=== PATIENT | male | born 1965 | race Caucasian/White ===

== ENCOUNTER 2019-06-27 13:24 | Emergency (ER) | payer BC, OTHER ==
[~2019-06-27] VITALS: Ht 177.8 cm; Wt 81.6 kg
--- NOTE | 2019-06-27 14:20 | ED Lower Extremity ---
General Chief Complaint: Lower Extremity Stated Complaint: R KNEE PAIN Nursing Triage Note: Pt amb to traige with cane assist. 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 Pt reports Rt knee was hyperextended innwards. Pt states, "there was a lot of popping and cracking." Pt arrives with ice pack to Rt knee. Denies numbness or tingling. Denies further injury. Nursing Sepsis Screen: No Definite Risk Source: patient Exam Limitations: no limitations History of Present Illness Date Seen by Provider: Jun 27, 2019 Time Seen by Provider: 14:18 Initial Comments To ER with pain in the right knee, and auditory with a cane. 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 Onset: just prior to arrival Severity: moderate Pain/Injury Location: right knee Method of Injury: unknown Modifying Factors: Worse With Movement Allergies and Home Medications Patient Home Medication List Home Medication List Reviewed: Yes Review of Systems Constitutional: see HPI EENTM: see HPI Respiratory: no symptoms reported Cardiovascular: no symptoms reported Genitourinary: no symptoms reported Musculoskeletal: see HPI Skin: no symptoms reported Psychiatric/Neurological: No Symptoms Reported Past Xuswcbt-Npynys-Yiqkqf Hx Patient Social History Alcohol Use: Regular Use Number of Drinks Today: 0 Alcohol Beverage of Choice: Beer Recreational Drug Use: No Type Used: Smokeless Tobacco 2nd Hand Smoke Exposure: No Recent Foreign Travel: No Contact w/Someone Who Travel: No Recent Infectious Disease Expo: No Recent Hopitalizations: No Seasonal Allergies Seasonal Allergies: No Past Medical History Surgeries: No Respiratory: No Cardiac: Yes Hypertension Neurological: No Genitourinary: No Gastrointestinal: No Musculoskeletal: No Endocrine: No HEENT: No Cancer: No Psychosocial: No Integumentary: No Physical Exam Vital Signs Vital Signs - First Documented 06/27/19 13:53 Temp 37.0 Pulse 88 Resp 17 B/P (MAP) 118/67 (84) Pulse Ox 99 O2 Delivery Room Air Capillary Refill : Less Than 3 Seconds Height, Weight, BMI Height: '" Weight: lbs. oz. kg; 25.00 BMI Method: General Appearance: WD/WN, no apparent distress HEENT: PERRL/EOMI, normal ENT inspection Respiratory: no respiratory distress, no accessory muscle use Hips: bilateral hip non-tender, bilateral hip normal inspection, bilateral hip normal range of motion Legs: bilateral leg non-tender, bilateral leg normal inspection, bilateral leg normal range of motion Knees: right knee pain, right knee soft tissue tenderness (medially) Ankles: bilateral ankle non-tender, bilateral ankle normal inspection Feet: bilateral foot non-tender, bilateral foot normal inspection Neurologic/Psychiatric: alert, normal mood/affect, oriented x 3 Skin: normal color, warm/dry Progress/Results/Core Measures Results/Orders Vital Signs/I&O 06/27/19 13:53 Temp 37.0 Pulse 88 Resp 17 B/P (MAP) 118/67 (84) Pulse Ox 99 O2 Delivery Room Air Blood Pressure Mean: 84 POS Diagnostic Imaging Diagonstic Imaging: Xray Comments NAME: GERRY LOVE MED REC#: [id number] PT STATUS: REG ER : 1965 PHYSICIAN: FRED JOHNSTON MD ADMIT DATE: 06/27/19/ER Draft POSDate of Exam:06/27/19 KNEE, RIGHT, 3 VIEWS KNEE, RIGHT, 3 VIEWS COMPARISON: None available. INDICATION: Right knee pain after injury. TECHNIQUE: Non-weight bearing AP, oblique, and lateral views of the right knee. FINDINGS: Potential thin linear cortical avulsion-type fracture involving the lateral tibial plateau. No additional fracture. The joint spaces are well maintained. Small knee joint effusion. IMPRESSION: Potential tiny avulsion fracture along the periphery of the lateral tibial plateau. If this corresponds to site of pain, fractures favored over prominent vascular channel. If it will alter the patient's management, consider CT of the right knee without contrast for further evaluation. Dictated on workstation # [id number] Dict: 06/27/19 1440 Trans: 06/27/19 1444 [facility] [id number] Interpreted by: DOMENICA RODGERS MD Electronically signed by: Departure Communication (Admissions) States that his knee bent medially, he heard a cracking and popping noises and is tender to the medial aspect of the knee, would have concern possible MCL tear and auditory into the emergency room, offered pain medication but declines. Impression Primary Impression: Internal derangement of right knee Disposition: 01 HOME, SELF-CARE Condition: Stable Departure-Patient Inst. Decision time for Depature: 14:49 Referrals: NO,LOCAL PHYSICIAN (PCP/Family) Primary Care Physician Patient Instructions: Ligament Injuries in the Knee (DC) Add. Discharge Instructions: 1. Follow-up with your regular doctor this week to discuss further imaging which will likely include an MRI. All discharge instructions reviewed with patient and/or family. Voiced understanding. JESSICA DUMONT APRN Jun 27, 2019 14:20 POS
--- NOTE | 2019-06-27 14:44 | Diagnostic Imaging Report ---
KNEE, RIGHT, 3 VIEWS COMPARISON: None available. INDICATION: Right knee pain after injury. TECHNIQUE: Non-weight bearing AP, oblique, and lateral views of the right knee. FINDINGS: Potential thin linear cortical avulsion-type fracture involving the lateral tibial plateau. No additional fracture. The joint spaces are well maintained. Small knee joint effusion. IMPRESSION: Potential tiny avulsion fracture along the periphery of the lateral tibial plateau. If this corresponds to site of pain, fractures favored over prominent vascular channel. If it will alter the patient's management, consider CT of the right knee without contrast for further evaluation. Dictated by: Dictated on workstation # [id number]
[2019-06-27] MEDS ORDERED: ACHD5005 PO (14:55)
[2019-06-27 15:05] VITALS: BP 118/67
== END 2019-06-27 15:05 | disposition home or self-care (01) ==
LOC: ER 13:27
DX: M23.91 Unspecified internal derangement of right knee (principal); I10 Essential (primary) hypertension; X50.1XXA Overexertion from prolonged static or awkward postures, initial encounter
CPT/HCPCS: 73562

== ENCOUNTER → 2019-06-29 | Outpatient (CLI) | payer BC ==
[~2019-06-29] MED LIST: ACHD5005 PO
--- NOTE | 2019-06-29 15:01 | Diagnostic Imaging Report ---
MRI RT LOWER EXT JOINT W/O TECHNIQUE: Multiplanar, multisequence MR imaging of the right knee was performed without contrast. COMPARISON: Knee radiographs of 06/27/2019. INDICATION: Right knee pain after injury. FINDINGS: MENISCI Medial meniscus: There is minimal undersurface irregularity of the posterior horn of the medial meniscus which could represent a small amount of nondisplaced tearing. Lateral meniscus: Normal. LIGAMENTS ACL: ACL is completely torn at its proximal origin. PCL: Intact. MCL: Partial-thickness tear of the origin of the MCL. The distal insertion of the MCL remains intact. LCL: The lateral collateral ligamentous complex is intact. EXTENSOR MECHANISM The extensor mechanism is intact. CARTILAGE Medial compartment: Medial compartment articular cartilage is well preserved without focal high-grade chondromalacia. Lateral compartment: The lateral compartment articular cartilage is preserved without high-grade chondromalacia. Patellofemoral compartment: Low-grade partial-thickness degenerative chondral fissuring in the patella. BONE Small focus of subcortical bone edema in the posterior tibial plateau is most compatible with bone contusion. No fracture. Specifically, there is no avulsion fracture along the lateral tibial plateau. SOFT TISSUE Large knee joint effusion. No Veliz's cyst. IMPRESSION: 1. Complete tear of the ACL at its origin. 2. Partial-thickness tear of the MCL at its origin. 3. Nondisplaced tear in the undersurface of the posterior horn of the medial meniscus. 4. No acute chondral injury. There are few scattered foci of low-grade partial-thickness degenerative chondral loss in the patella. 5. Small focus of bone contusion in the posterior aspect of the lateral tibia plateau. 6. Large knee joint effusion. Dictated by: Dictated on workstation # [id number]
== END ==
LOC: RAD 12:13
PROVIDERS: ATTEND Nurse Practitioner Family
DX: M23.91 Unspecified internal derangement of right knee (principal); S83.511A Sprain of anterior cruciate ligament of right knee, initial encounter; S83.411A Sprain of medial collateral ligament of right knee, initial encounter; M25.461 Effusion, right knee
CPT/HCPCS: 73721

== ENCOUNTER → 2020-07-31 | Outpatient (CLI) | payer BC ==
[2020-07-31 14:03] LABS: BASOPHILS % (AUTO) 1 % (0-10); EOSINOPHILS % (AUTO) 0 % (0-10); HEMATOCRIT 42 % (40-54); HEMOGLOBIN 13.9 g/dL (13.3-17.7); LYMPHOCYTES # (AUTO) 1.1 10^3/uL (1.0-4.0); LYMPHOCYTES % (AUTO) 24 % (12-44); MEAN CORPUSCULAR HEMOGLOBIN 31 pg (25-34); MEAN CORPUSCULAR HGB CONC 33 g/dL (32-36); MEAN CORPUSCULAR VOLUME 94 fL (80-99); MEAN PLATELET VOLUME 11.5 fL (9.0-12.2); MONOCYTES # (AUTO) 0.6 10^3/uL (0.0-1.0); MONOCYTES % (AUTO) 12 % (0-12); NEUTROPHILS # (AUTO) 2.9 10^3/uL (1.8-7.8); NEUTROPHILS % (AUTO) 62 % (42-75); PLATELET COUNT 205 10^3/uL (130-400); WHITE BLOOD COUNT 4.6 10^3/uL (4.3-11.0)
[2020-07-31 14:18] LABS: ALANINE AMINOTRANSFERASE 25 U/L (0-55); ALBUMIN 4.5 GM/DL (3.2-4.5); ALKALINE PHOSPHATASE 53 U/L (40-136); BILIRUBIN,TOTAL 0.9 MG/DL (0.1-1.0); BUN/CREATININE RATIO 19; CALCIUM 9.4 MG/DL (8.5-10.1); CARBON DIOXIDE 23 MMOL/L (21-32); CHLORIDE 102 MMOL/L (98-107); CHOLESTEROL 239 MG/DL (< 200); CREATININE SERUM 1.04 MG/DL (0.60-1.30); GFR ESTIMATED > 60; GLUCOSE 97 MG/DL (70-105); HDL CHOLESTEROL 46 MG/DL (40-60); POTASSIUM 4.3 MMOL/L (3.6-5.0); SODIUM 136 MMOL/L (135-145); TOTAL PROTEIN 7.5 GM/DL (6.4-8.2); TRIGLYCERIDES 77 MG/DL (<150); VLDL CHOLESTEROL 15 MG/DL (5-40)
== END ==
LOC: CARD 13:00
DX: R00.2 Palpitations (principal)
CPT/HCPCS: 36415; 80053; 80061; 85025; 93005; 93306